=== PATIENT | female | born 1975 | race Caucasian/White ===

== ENCOUNTER 2016-09-03 16:11 | Emergency (ER) | payer BC, OTHER ==
[2016-09-03] MEDS ORDERED: IBUPROFEN 600 MG TABLET (FP) PO ONE ×2 (16:54→17:16)
[2016-09-03] MEDS ORDERED: METHOCARBAMOL 500 MG TABLET PO ONE (16:55)
[2016-09-03 16:57] VITALS: BP 112/74; PULSE 88; TEMP 98; BMI 22.8
[2016-09-03] MEDS ORDERED: METHOCARBAMOL 500 MG TABLET ONE (17:10)
[2016-09-03 17:14] LABS: URINE APPEARANCE CLEAR; URINE BILIRUBIN NEGATIVE (NEGATIVE); URINE BLOOD NEGATIVE (NEGATIVE); URINE COLOR YELLOW; URINE GLUCOSE (UA) NEGATIVE (NEGATIVE); URINE KETONE TRACE (NEGATIVE); URINE LEUK ESTERASE NEGATIVE (NEGATIVE); URINE NITRITE NEGATIVE (NEGATIVE); URINE PROTEIN NEGATIVE (NEGATIVE); URINE UROBILINOGEN NEGATIVE E.U./dl (0.2-1.0)
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
== END 2016-09-03 17:52 | disposition home or self-care (01) ==
LOC: JERFT 16:11
DX: S30.0XXA Contusion of lower back and pelvis, initial encounter (principal); Y04.2XXA Assault by strike against or bumped into by another person, initial encounter; Y93.89 Activity, other specified; Y92.219 Unspecified school as the place of occurrence of the external cause; Y99.0 Civilian activity done for income or pay; J45.909 Unspecified asthma, uncomplicated; D64.9 Anemia, unspecified
CPT/HCPCS: 81003; 99281-25

== ENCOUNTER 2016-10-01 15:16 | Emergency (ER) | payer BC, OTHER ==
[2016-10-01 15:33] VITALS: BP 99/65; PULSE 113; TEMP 97.8; BMI 29.2
--- NOTE | 2016-10-01 15:36 | PDOC ---
Rapid Medical Evaluation Time Seen by Provider: 10/01/16 15:22 Medical Evaluation: Allergies Allergy/AdvReac Type Severity Reaction Status Date / Time No Known Allergies Allergy Verified 09/03/16 16:53 10/01/16 15:29 I have performed a brief in-person evaluation of this patient. The patient presents with a chief complaint of severe back pain and spasm Has a history of Asthma, anemia PT states she was shoveling yesterday and "threw out her back" Pain is 10/10, comes in waves and is a cramp Pt feels like something is resting on a nerve She could not sleep last night and has a hard time finding a position of comfort She took motrin and applied a heating pad with no relief Pertinent physical exam findings: Pt limping slowly into the ER traige Left paraspinal tenderness to palpation I have ordered the following: Would order Toradol and Robaxin Pt s/p hysterectomy (no need for HCG) The patient will proceed to the ED for further evaluation. 10/01/16 15:34
[2016-10-01] MEDS ORDERED: KETOROLAC TROMETHAMINE 60 MG/2 ML VIAL IM ONE (16:19)
[2016-10-01] MEDS ORDERED: METHOCARBAMOL 500 MG TABLET PO ONE (16:19)
[2016-10-01] MEDS ORDERED: KETOROLAC TROMETHAMINE 30 MG/1 ML VIAL ONE (16:25)
[2016-10-01] MEDS ORDERED: METHOCARBAMOL 500 MG TABLET ONE (16:29)
--- NOTE | 2016-10-01 16:34 | PDOC ---
[id number] 4d BACK PAIN, SOB Time Seen by Provider: 10/01/16 15:22 History Source: Patient Exam Limitations: No Limitations - History of Present Illness Initial Comments: 10/01/16 16:28 41 yr female with c/o pain to lower back after shoveling yesterday. Pt states she felt the pain as she was throwing the heavy snow from the shovel. Pain is to lower back left side radiates to buttock and left leg causing numbness and tingling. Pt denies incontinence of urine or bowel. no saddle anesthesia, neg abd pain. Pt has history of kidney stones. Occurred: reports: yesterday Severity: reports: moderate Pain Location: reports: back Loss of Consciousness: no loss of consciousness Past History - Past Medical History Allergies/Adverse Reactions: Allergies Allergy/AdvReac Type Severity Reaction Status Date / Time No Known Allergies Allergy Verified 10/01/16 15:30 Home Medications: Ambulatory Orders Cyclobenzaprine HCl [Flexeril 10 mg] 5 mg PO TID PRN #21 tablet 10/01/16 Naproxen [Naprosyn -] 500 mg PO BID PRN #28 tablet 10/01/16 Oxycodone HCl/Acetaminophen [Percocet 5-325 mg Tablet] 1 - 2 tab PO Q6H PRN #10 tab MDD 6 10/01/16 Anemia: Yes Asthma: Yes GI Disorders: Yes Disorders: Yes (EXTRA KIDNEY) Suicide Attempt (Hx): No - Surgical History Abdominal Surgery: Yes (HERNIA X2) - Reproductive History Tubal Ligation: Yes - Immunization History Td Vaccination: Yes Immunization Up to Date: Yes - Psycho/Social/Smoking Cessation Hx Anxiety: No Suicidal Ideation: No Smoking Status: No Smoking History: Never smoked Have you smoked in the past 12 months: No Number of Cigarettes Smoked Daily: 0 Information on smoking cessation initiated: No Hx Alcohol Use: No Drug/Substance Use Hx: No Substance Use Type: None Trauma Specific PMHX - Complaint Specific PMHX Arthritis: No Back Injury: No Neck Injury: No Hx Sacro Iliac Joint Dysfunction: No Review of Systems - Review of Systems Able to Perform ROS?: Yes Is the patient limited Romanian proficient: No Constitutional: No: Symptoms Reported HEENTM: No: Symptoms Reported Respiratory: No: Symptoms reported Cardiac (ROS): No: Symptoms Reported ABD/GI: No: Symptoms Reported : No: Symptoms Reported Musculoskeletal: Yes: Back Pain Integumentary: No: Symptoms Reported Neurological: No: Symptoms reported *Physical Exam - Vital Signs Last Vital Signs Temp Pulse Resp BP Pulse Ox 97.8 F 113 H 18 99/65 100 10/01/16 15:31 10/01/16 15:31 10/01/16 15:31 10/01/16 15:31 10/01/16 15:31 - Physical Exam General Appearance: Yes: Nourished, Appropriately Dressed, Moderate Distress ( crying ) HEENT: positive: EOMI, SINDY, Normal ENT Inspection, TMs Normal, Pharynx Normal Neck: positive: Supple. negative: Tender, Lymphadenopathy (R), Lymphadenopathy (L) Respiratory/Chest: positive: Lungs Clear, Normal Breath Sounds. negative: Chest Tender Cardiovascular: positive: Regular Rhythm, Regular Rate Gastrointestinal/Abdominal: positive: Normal Bowel Sounds, Soft. negative: Tender Musculoskeletal: positive: Normal Inspection, Muscle Spasm, Other (left lower back paraspinal TTP ). negative: CVA Tenderness, CVA Tenderness (R) Extremity: positive: Normal Capillary Refill Integumentary: positive: Normal Color, Dry, Warm Neurologic: positive: Fully Oriented, Alert, Normal Mood/Affect, Normal Response , Motor Strength 5/5. negative: Sensory Deficit Medical Decision Making - Medical Decision Making 10/01/16 16:31 cc: low back pain after shoveling snow yesterday left leg with sciatica will give toradol and robaxin pt s/p hysterectomy denies will check UA r/o blood 10/01/16 16:34 neg urine will give toradol and robaxin, percocet for severe pain 10/01/16 17:23 *DC/Admit/Observation/Transfer Diagnosis at time of Disposition: Back pain Qualifiers: Back pain location: low back pain Chronicity: acute Back pain laterality: left Sciatica presence: with sciatica Sciatica laterality: sciatica of left side Qualified Code(s): M54.42 - Lumbago with sciatica, left side - Discharge Dispostion Disposition: HOME Condition at time of disposition: Good - Prescriptions Prescriptions: Cyclobenzaprine HCl [Flexeril 10 mg] 5 mg PO TID PRN #21 tablet PRN Reason: Muscle Spasms Naproxen [Naprosyn -] 500 mg PO BID PRN #28 tablet PRN Reason: Back Pain Oxycodone HCl/Acetaminophen [Percocet 5-325 mg Tablet] 1 - 2 tab PO Q6H PRN #10 tab MDD 6 PRN Reason: Severe Pain - Referrals Referrals: Rl Briceno MD [Staff Physician] - - Patient Instructions Additional Instructions: take the medication as prescribed DO NOT TAKE PERCOCET AND DRIVE, DRINK ALCOHOL OR OPERATE MACHINERY DO NOT TAKE FLEXERIL AND DRIVE, DRINK ALCOHOL OR OPERATE MACHINERY DO NOT TAKE PERCOCET AND FLEXERIL TOGETHER WAIT AT LEAST 2 HRS YOU CAN TAKE NAPROSYN WITH EITHER MEDICATION apply ice to lower back every 2-3hrs for 20 minutes for the next 2 days then apply warm heating pad follow with the orthopedist for follow up do not stay in one position for long periods of time move around no heavy lifting or bending return if any worsening symptoms - Post Discharge Activity Work/School Note: Back to Work
[2016-10-01 17:08] LABS: URINE APPEARANCE CLOUDY; URINE BILIRUBIN NEGATIVE (NEGATIVE); URINE BLOOD NEGATIVE (NEGATIVE); URINE COLOR YELLOW; URINE GLUCOSE (UA) NEGATIVE (NEGATIVE); URINE KETONE NEGATIVE (NEGATIVE); URINE LEUK ESTERASE NEGATIVE (NEGATIVE); URINE NITRITE NEGATIVE (NEGATIVE); URINE PROTEIN NEGATIVE (NEGATIVE); URINE UROBILINOGEN NEGATIVE E.U./dl (0.2-1.0)
[2016-10-01] MEDS ORDERED: OXYCODONE/APAP 5/325MG COMBO TABLET PO ONE (17:22)
[2016-10-01] MEDS ORDERED: OXYCODONE/APAP 5/325MG COMBO TABLET ONE (17:27)
== END 2016-10-01 17:55 | disposition home or self-care (01) ==
LOC: JERFT 15:16
PROC: 3E0233Z Introduction of Anti-inflammatory into Muscle, Percutaneous Approach (ICD-10-PCS; principal; 2016-10-01)
DX: M54.42 Lumbago with sciatica, left side (principal); X58.XXXA Exposure to other specified factors, initial encounter; Y93.H1 Activity, digging, shoveling and raking; Y92.410 Unspecified street and highway as the place of occurrence of the external cause
CPT/HCPCS: 81003; 99281-25

== ENCOUNTER 2017-09-07 11:19 | Emergency (ER) | payer BC ==
[2017-09-07 11:36] VITALS: BP 106/81; PULSE 89; TEMP 98.3; BMI 26.0
[2017-09-07] MEDS ORDERED: IBUPROFEN 400 MG TABLET (FP) PO ONE (12:17)
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
== END 2017-09-07 13:38 | disposition home or self-care (01) ==
LOC: JERFT 11:19
DX: S92.515A Nondisplaced fracture of proximal phalanx of left lesser toe(s), initial encounter for closed fracture (principal); W22.09XA Striking against other stationary object, initial encounter; Y93.89 Activity, other specified; Y92.89 Other specified places as the place of occurrence of the external cause; Y99.8 Other external cause status
CPT/HCPCS: 73660-TC-FY; 99281-25

== ENCOUNTER 2018-05-20 12:21 | Emergency (ER) | payer OTHER, BC ==
[2018-05-20 12:27] VITALS: BP 121/91; PULSE 91; TEMP 98; BMI 25.4
[2018-05-20] MEDS ORDERED: KETOROLAC TROMETHAMINE 60 MG/2 ML VIAL IM ONE (13:40)
[2018-05-20] MEDS ORDERED: KETOROLAC TROMETHAMINE 60 MG/2 ML VIAL ONE (13:47)
--- NOTE | 2018-05-20 13:56 | PDOC ---
History of Present Illness - General Chief Complaint: Injury Stated Complaint: INJURY Time Seen by Provider: 05/20/18 13:25 History Source: Patient Exam Limitations: No Limitations - History of Present Illness Initial Comments: 05/20/18 13:49 42 yr female with c/o fall yesterday at work injured back. pt woke up today feeling worse no pain meds taken today. Pt was playing musical chairs and a chair was pulled out from under her and she fell on her back no head trauma no LOC. pt denies abd pain no urine complaints, no leg pain. Occurred: reports: yesterday Severity: reports: moderate Pain Location: reports: back Modifying Factors: improves with: None Past History - Past Medical History Allergies/Adverse Reactions: Allergies Allergy/AdvReac Type Severity Reaction Status Date / Time No Known Allergies Allergy Verified 05/20/18 12:27 Home Medications: Ambulatory Orders Oxycodone HCl/Acetaminophen [Percocet 5-325 mg Tablet -] 1 - 2 tab PO Q4H PRN # 20 tablet MDD 4 09/07/17 Cyclobenzaprine HCl [Flexeril -] 10 mg PO TID PRN #21 tablet 05/20/18 Naproxen [Naprosyn] 500 mg PO BID PRN #20 tablet 05/20/18 Anemia: Yes Asthma: Yes COPD: No GI Disorders: Yes Disorders: Yes (EXTRA KIDNEY) - Surgical History Abdominal Surgery: Yes (HERNIA X2) - Reproductive History Tubal Ligation: Yes - Immunization History Td Vaccination: Yes Immunization Up to Date: Yes - Suicide/Smoking/Psychosocial Hx Smoking Status: No Smoking History: Never smoked Have you smoked in the past 12 months: No Number of Cigarettes Smoked Daily: 0 Hx Alcohol Use: No Drug/Substance Use Hx: No Substance Use Type: None Trauma Specific PMHX - Complaint Specific PMHX Arthritis: No Back Injury: No Neck Injury: No Hx Sacro Iliac Joint Dysfunction: No *Physical Exam - Vital Signs Last Vital Signs Temp Pulse Resp BP Pulse Ox 98 F 91 H 18 121/91 100 05/20/18 12:22 05/20/18 12:22 05/20/18 12:22 05/20/18 12:22 05/20/18 12:22 - Physical Exam General Appearance: Yes: Nourished, Appropriately Dressed HEENT: positive: EOMI, SINDY Neck: positive: Supple. negative: Tender Respiratory/Chest: positive: Lungs Clear, Normal Breath Sounds. negative: Chest Tender Cardiovascular: positive: Regular Rhythm, Regular Rate Gastrointestinal/Abdominal: positive: Normal Bowel Sounds, Soft Musculoskeletal: positive: Normal Inspection, Vertebral Tenderness (lumbar spine and thoracic spine, cervical spine paraspinal muscles ttp no vetebral tenderness). 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 NML intact, Fully Oriented, Alert, Normal Mood/ Affect ED Treatment Course - RADIOLOGY Radiology Studies Ordered: Category Date Time Status SPINE-CERVICAL [RAD] Stat Radiology 05/20/18 13:40 Ordered SPINE-LUMBAR SACRAL [RAD] Stat Radiology 05/20/18 13:40 Ordered SPINE-THORACIC [RAD] Stat Radiology 05/20/18 13:40 Ordered Medical Decision Making - Medical Decision Making 05/20/18 13:51 cc: back pain after fall pt states pain is reproducable with movement and to touch no bony tenderness cervical spine is midline no vetebral tenderness pain reproduced with rotation of the neck will give toradol and xray 05/20/18 13:59 05/20/18 15:04 pt feels better after the toradol, preliminary xrays are negative for fracture. pt to be dc home strict follow up with PMD and with ortho pt agrees all questions asked and answered *DC/Admit/Observation/Transfer Diagnosis at time of Disposition: Back pain Qualifiers: Back pain location: thoracic back pain Chronicity: acute Back pain laterality: bilateral Qualified Code(s): M54.6 - Pain in thoracic spine - Discharge Dispostion Disposition: HOME Condition at time of disposition: Good - Prescriptions Prescriptions: Cyclobenzaprine HCl [Flexeril -] 10 mg PO TID PRN #21 tablet PRN Reason: Muscle Spasms Naproxen [Naprosyn] 500 mg PO BID PRN #20 tablet PRN Reason: Back Pain - Referrals Referrals: Mateusz Woods DO [Staff Physician] - - Patient Instructions Additional Instructions: heating pad, hot showers can help relieve tension and muscle spasm take the medications as directed , you may feel sore for a few days however any worsening pain or other concerns return to ER follow with the orthopedist Dr.Woods for follow up next week as needed avoid heavy lifting or bending return to ER for any worsening symptoms - Post Discharge Activity Forms/Work/School Notes: Back to Work
== END 2018-05-20 15:11 | disposition home or self-care (01) ==
LOC: JERFT 12:21
PROC: 3E0233Z Introduction of Anti-inflammatory into Muscle, Percutaneous Approach (ICD-10-PCS; principal; 2018-05-20)
DX: M54.6 Pain in thoracic spine (principal); W18.39XA Other fall on same level, initial encounter; Y93.89 Activity, other specified; Y92.212 Middle school as the place of occurrence of the external cause; Y99.0 Civilian activity done for income or pay
CPT/HCPCS: 72050-TC-FY; 72070-TC-FY; 72100-TC-FY; 99281-25

== ENCOUNTER 2018-05-22 00:25 | Emergency (ER) | payer BC, OTHER ==
--- NOTE | 2018-05-22 00:50 | PDOC ---
History of Present Illness - General History Source: Patient Exam Limitations: No Limitations - History of Present Illness Initial Comments: 05/22/18 02:11 The patient is a 42-year-old female with past medical history significant for asthma and anemia presents to the emergency department with back pain. 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 The patient was seen at the ED on 05/20/2018 for the injury, was discharged home with Flexeril and Naprosyn. The patient presents today with R. upper back pain, with difficulty moving. The patient states she is unable to lay down flat secondary to the pain, reports using heat pack for the pain, without relief. Denies numbness, tingling, or loss of sensation. Denies fever, chills, chest pain or shortness of breath. Allergies: NKA Social history: No past or present use of tobacco, alcohol or recreational drugs PCP: None reported <Mariluz San - Last Filed: 05/22/18 02:11> <Cecille Montaño - Last Filed: 05/22/18 03:37> - General Stated Complaint: BACK PAIN/INJURY Time Seen by Provider: 05/22/18 00:50 Past History <Mariluz San - Last Filed: 05/22/18 02:11> - Past Medical History Anemia: Yes Asthma: Yes COPD: No GI Disorders: Yes Disorders: Yes (EXTRA KIDNEY) - Surgical History Abdominal Surgery: Yes (HERNIA X2) - Reproductive History Tubal Ligation: Yes - Immunization History Td Vaccination: Yes Immunization Up to Date: Yes - Suicide/Smoking/Psychosocial Hx Smoking Status: No Smoking History: Never smoked Have you smoked in the past 12 months: No Number of Cigarettes Smoked Daily: 0 Hx Alcohol Use: No Drug/Substance Use Hx: No Substance Use Type: None <Cecille Montaño - Last Filed: 05/22/18 03:37> - Past Medical History Allergies/Adverse Reactions: Allergies Allergy/AdvReac Type Severity Reaction Status Date / Time No Known Allergies Allergy Verified 05/22/18 00:51 Home Medications: Ambulatory Orders Oxycodone HCl/Acetaminophen [Percocet 5-325 mg Tablet -] 1 - 2 tab PO Q4H PRN # 20 tablet MDD 4 09/07/17 Cyclobenzaprine HCl [Flexeril -] 10 mg PO TID PRN #21 tablet 05/20/18 Naproxen [Naprosyn] 500 mg PO BID PRN #20 tablet 05/20/18 Lidocaine 5% Patch [Lidoderm Patch -] 1 patch TP DAILY #7 patch 05/22/18 Review of Systems - Review of Systems Able to Perform ROS?: Yes Comments:: 05/22/18 02:11 GENERAL/CONSTITUTIONAL: No fever or chills. No weakness. HEAD, EYES, EARS, NOSE AND THROAT: No change in vision. No ear pain or discharge. No sore throat. CARDIOVASCULAR: No chest pain or shortness of breath. RESPIRATORY: No cough, wheezing, or hemoptysis. GASTROINTESTINAL: No nausea, vomiting, diarrhea or constipation. GENITOURINARY: No dysuria, frequency, or change in urination. MUSCULOSKELETAL: (+) R. upper back pain. No joint or muscle swelling or pain. No neck pain. SKIN: No rash NEUROLOGIC: No headache, vertigo, loss of consciousness, or change in strength/ sensation. ENDOCRINE: No increased thirst. No abnormal weight change. HEMATOLOGIC/LYMPHATIC: No anemia, easy bleeding, or history of blood clots. ALLERGIC/IMMUNOLOGIC: No hives or skin allergy. <Mariluz San - Last Filed: 05/22/18 02:11> *Physical Exam - Vital Signs Last Vital Signs Temp Pulse Resp BP Pulse Ox 97.6 F 98 H 18 129/93 99 05/22/18 00:30 05/22/18 00:30 05/22/18 00:30 05/22/18 00:30 05/22/18 00:30 - Physical Exam Comments: 07/22/17 01:38 GENERAL: Afebril Awake, alert, and fully oriented, in no acute distress HEAD: No signs of trauma EYES: PERRLA, EOMI, sclera anicteric, conjunctiva clear ENT: Auricles normal inspection, hearing grossly normal, nares patent, oropharynx clear without exudates. Moist mucosa NECK: Normal ROM, supple, no lymphadenopathy, JVD, or masses LUNGS: Breath sounds equal, clear to auscultation bilaterally. No wheezes, and no crackles HEART: Regular rate and rhythm, normal S1 and S2, no murmurs, rubs or gallops ABDOMEN: Soft, nontender, normoactive bowel sounds. No guarding, no rebound. No masses EXTREMITIES: Normal range of motion, no edema. No clubbing or cyanosis. No cords, erythema, or tenderness MUSCULOSKELETAL: (+) Extremely stiff, seated in one position, arm adducted and flexed R. arm, R. back pain tearful when pressed on her R. paraspinal area between T3-T6. R. paraspinal thoracic posterior tenderness and R. trapezius tenderness. NEUROLOGICAL: Cranial nerves II through XII grossly intact. Normal speech. SKIN: Warm, Dry, normal turgor, no rashes or lesions noted. <Mariluz San - Last Filed: 05/22/18 02:11> ED Treatment Course - Medications Given in the ED: ED Medications Discontinued Medications Generic Name Dose Route Start Last Admin Trade Name Kingsleyq PRN Reason Stop Dose Admin Ketorolac Tromethamine 60 mg 05/22/18 01:18 05/22/18 01:28 Toradol Injection - IM 05/22/18 01:19 60 mg ONCE ONE Administration Lidocaine 1 patch 05/22/18 01:15 05/22/18 01:26 Lidoderm Patch - TP 05/22/18 01:16 1 patch ONCE ONE Administration Morphine Sulfate 2 mg 05/22/18 01:15 05/22/18 01:26 Morphine Injection - IM 05/22/18 01:16 2 mg ONCE ONE Administration <Mariluz San - Last Filed: 05/22/18 02:11> - LABORATORY CBC & Chemistry Diagram: 05/22/18 02:55 05/22/18 02:55 <Cecille Montaño - Last Filed: 05/22/18 03:37> Medical Decision Making - Medical Decision Making 05/22/18 03:35 Patient Name: VANDA CONSTANTINO THIS IS A PRELIMINARY REPORT FROM [facility] DATE OF SERVICE: 2018-05-22 02:15:52 IMAGES: 425 EXAM: CT CHEST WITHOUT CONTRAST Paraspinal soft tissues unremarkable. Minimal spondylosis thoracic spine. No pneumonia or pleural effusions. One or more of the following dose reduction techniques were used: automated exposure control, adjustment of the mA and/or kV according to patient size, use of iterative reconstructive technique. THIS DOCUMENT HAS BEEN ELECTRONICALLY SIGNED <Cecille Montaño - Last Filed: 05/22/18 03:37> *DC/Admit/Observation/Transfer <Mariluz San - Last Filed: 05/22/18 02:11> - Discharge Dispostion Decision to Admit order: No <Cecille Montaño - Last Filed: 05/22/18 03:37> Diagnosis at time of Disposition: Muscle spasm of back - Discharge Dispostion Disposition: HOME Condition at time of disposition: Improved - Patient Instructions Printed Discharge Instructions: DI for Back Spasm - Post Discharge Activity Forms/Work/School Notes: Back to Work
[2018-05-22 00:53] VITALS: BP 129/93; PULSE 98; TEMP 97.6; BMI 30.9
[2018-05-22] MEDS ORDERED: LIDOCAINE 5% TOPICAL PATCH TP ONE (01:15)
[2018-05-22] MEDS ORDERED: morphine CARPU-JECT 2 MG/1 ML DISP.SYRIN IM ONE (01:15)
[2018-05-22] MEDS ORDERED: KETOROLAC TROMETHAMINE 60 MG/2 ML VIAL IM ONE (01:18)
[2018-05-22] MEDS ORDERED: morphine SULFATE 4 MG/ML VIAL ONE (01:18)
[2018-05-22] MEDS ORDERED: LIDOCAINE 5% TOPICAL PATCH ONE (01:19)
[2018-05-22] MEDS ORDERED: KETOROLAC TROMETHAMINE 60 MG/2 ML VIAL ONE (01:26)
[2018-05-22 03:19] LABS: BASO % 0.9 % (0-2.0); EOS % 7.5 % (0-4.5); HEMATOCRIT 38.5 % (32.4-45.2); HEMOGLOBIN 13.1 GM/dL (10.7-15.3); LYMPH % 28.8 % (8-40); MEAN PLT VOLUME 9.5 fl (7.5-11.1); MONO % 7.9 % (3.8-10.2); NEUT % 54.9 % (42.8-82.8); PLATELET COUNT 211 K/MM3 (134-434); RBC 4.09 M/mm3 (3.60-5.2); RDW 13.4 % (11.6-15.6)
[2018-05-22 03:40] LABS: ALBUMIN 4.1 g/dl (3.4-5.0); ALK PHOS 71 U/L (45-117); ANION GAP 8 MMOL/L (8-16); BILIRUBIN,TOTAL 0.4 mg/dL (0.2-1); BLOOD UREA NITROGEN 17 mg/dL (7-18); CHLORIDE 105 mmol/L (98-107); CO2 26 mmol/L (21-32); CREATININE 0.5 mg/dL (0.55-1.3); GLUCOSE,RANDOM 87 mg/dL (74-106); POTASSIUM 4.2 mmol/L (3.5-5.1); SGOT/AST 11 U/L (15-37); SGPT/ALT 25 U/L (13-61); SODIUM 139 mmol/L (136-145); TOT PROT 7.8 g/dl (6.4-8.2)
[2018-05-22] MEDS ORDERED: LIDOCAINE PATCH REMOVAL MC SCH (22:00)
== END 2018-05-22 03:44 | disposition home or self-care (01) ==
LOC: JER 00:25
PROC: 3E0333Z Introduction of Anti-inflammatory into Peripheral Vein, Percutaneous Approach (ICD-10-PCS; principal; 2018-05-22)
DX: S29.8XXD Other specified injuries of thorax, subsequent encounter (principal); M62.830 Muscle spasm of back; W18.39XD Other fall on same level, subsequent encounter
CPT/HCPCS: 36415; 71250-TC; 80053; 84703; 85025; 99283-25

== ENCOUNTER 2018-10-27 09:11 | Emergency (ER) | payer BC ==
[2018-10-27 09:34] VITALS: BP 128/86; PULSE 79; TEMP 98.1; BMI 23.8
[2018-10-27] MEDS ORDERED: LIDOCAINE HCL 2% (50ML VIAL) INF ONE (10:58)
[2018-10-27] MEDS ORDERED: LIDOCAINE HCL 2% (20ML MULTI-DOSE VIAL) NR ONE (10:59)
--- NOTE | 2018-10-27 11:49 | PDOC ---
History of Present Illness - General Chief Complaint: Laceration Stated Complaint: RT THUMB CUT Time Seen by Provider: 10/27/18 10:22 History Source: Patient Exam Limitations: Clinical Condition - History of Present Illness Initial Comments: 10/27/18 11:44 Patient with no significant past medical history presenting for evaluation of laceration to tip of right index finger with a cooking knife last night. Patient report persistent bleeding to area which has been controlled with pressure dressing. Patient does not recall last tetanus vaccine. Denies numbness or tingling sensation to the finger. Denies any other symptoms Timing/Duration: reports: yesterday Past History - Past Medical History Allergies/Adverse Reactions: Allergies Allergy/AdvReac Type Severity Reaction Status Date / Time No Known Allergies Allergy Verified 10/27/18 10:39 Home Medications: Ambulatory Orders Cephalexin Monohydrate [Keflex -] 500 mg PO BID 7 Days #14 capsule 10/27/18 Ibuprofen 800 mg PO Q8H PRN #20 tablet 10/27/18 Anemia: Yes Asthma: Yes COPD: No GI Disorders: Yes Disorders: Yes (EXTRA KIDNEY) - Surgical History Abdominal Surgery: Yes (HERNIA X2) - Reproductive History Tubal Ligation: Yes - Immunization History Td Vaccination: Yes Immunization Up to Date: Yes - Suicide/Smoking/Psychosocial Hx Smoking Status: No Smoking History: Never smoked Have you smoked in the past 12 months: No Number of Cigarettes Smoked Daily: 0 Information on smoking cessation initiated: No Hx Alcohol Use: No Drug/Substance Use Hx: No Substance Use Type: None Review of Systems - Review of Systems Able to Perform ROS?: Yes Is the patient limited Niuean proficient: No Constitutional: No: Weakness HEENTM: No: Symptoms Reported Respiratory: No: Symptoms reported Cardiac (ROS): No: Symptoms Reported ABD/GI: No: Symptoms Reported Musculoskeletal: Yes: See HPI, Muscle Pain (tip of left index finger). No: Joint Swelling, Muscle Weakness Integumentary: Yes: See HPI, Other (laceration with skin avulsion of tip of left index finger) Neurological: No: Numbness, Paresthesia, Tingling All Other Systems: Reviewed and Negative *Physical Exam - Vital Signs Last Vital Signs Temp Pulse Resp BP Pulse Ox 98.1 F 79 18 128/86 98 10/27/18 09:32 10/27/18 09:32 10/27/18 09:32 10/27/18 09:32 10/27/18 09:32 - Physical Exam Comments: 10/27/18 11:46 GENERAL: Well developed, well nourished. Awake and alert in acute distress. CARDIOVASCULAR: Regular rate and rhythm. No murmurs, rubs, or gallops. PULMONARY: No evidence of respiratory distress. Lungs clear to auscultation bilaterally. No wheezing, rales or rhonchi. MUSCULOSKELETAL : Moderate tenderness over distal phalange of right thumb over 2 cm complete skin evulsion laceration to tip of right thumb with moderate bleeding. Free range of motion of thumb. 5 out of 5 muscle strength to thumb. SKIN: Warm and dry. Normal capillary refill. 2 cm complete skin avulsion laceration to tip of right thumb with moderate bleeding. NEUROLOGICAL: Alert, awake, appropriate. No motor deficits in the lower extremities. Gait is normal without ataxia. PSYCHIATRIC: Cooperative. Good eye contact. Appropriate mood and affect. General Appearance: Yes: Nourished, Appropriately Dressed, Mild Distress ED Treatment Course - Medications Given in the ED: ED Medications Discontinued Medications Generic Name Dose Route Start Last Admin Trade Name Freq PRN Reason Stop Dose Admin Lidocaine HCl 0 mg 10/27/18 10:58 10/27/18 11:01 Xylocaine 2% INF 10/27/18 10:59 3 mg ONCE ONE Administration Medical Decision Making - Medical Decision Making 10/27/18 11:47 Patient with no significant past medical history presented with laceration to tip of right thumb with a cooking knife last night. Patient reported persistent bleeding to site. Patient not on anticoagulant therapy. Patient not up-to-date on tetanus vaccine. Exam significant for 2 cm complete avulsion laceration to skin of the tip of right thumb with moderate bleeding. Digital block of right thumb done with 3 mL 2% lidocaine wound cleaned with Betadine and bleeding control with Surgifoam. Wound covered with adhesive bandage and protective circular gauze thumb. Patient educated on home wound care. Patient given follow-up with hand plastic. Tetanus vaccine given prior to discharge *DC/Admit/Observation/Transfer Diagnosis at time of Disposition: Laceration of right thumb without complication Qualifiers: Encounter type: initial encounter Qualified Code(s): S61.011A - Laceration without foreign body of right thumb without damage to nail, initial encounter - Discharge Dispostion Disposition: HOME Condition at time of disposition: Stable Decision to Admit order: No - Prescriptions Prescriptions: Cephalexin Monohydrate [Keflex -] 500 mg PO BID 7 Days #14 capsule Ibuprofen 800 mg PO Q8H PRN #20 tablet PRN Reason: pain - Referrals Referrals: Siddhartha Quesada MD [Staff Physician] - - Patient Instructions Printed Discharge Instructions: DI for Laceration Repair Additional Instructions: Take medications as prescribed. Keep wound clean and dry. Take prescribed motrin as needed for pain. Follow-up with hand specialist Dr. Quesada - Post Discharge Activity
[2018-10-27] MEDS ORDERED: DIPHTH,PERTUSS(ACELL),TET 0.5 ML DISP.SYRIN IM ONE ×2 (11:57→12:04)
== END 2018-10-27 12:10 | disposition home or self-care (01) ==
LOC: JERFT 09:11
PROC: 3E0234Z Introduction of Serum, Toxoid and Vaccine into Muscle, Percutaneous Approach (ICD-10-PCS; principal; 2018-10-27)
PROC: 0HQFXZZ Repair Right Hand Skin, External Approach (ICD-10-PCS; 2018-10-27)
DX: S61.011A Laceration without foreign body of right thumb without damage to nail, initial encounter (principal); W26.0XXA Contact with knife, initial encounter; Y93.89 Activity, other specified; Y92.89 Other specified places as the place of occurrence of the external cause; J45.909 Unspecified asthma, uncomplicated
CPT/HCPCS: 90715; 99281-25

== ENCOUNTER 2019-09-01 18:43 | Emergency (ER) | payer BC ==
[2019-09-01 18:58] VITALS: BMI 23.8
[2019-09-01] MEDS ORDERED: ONDANSETRON 4 MG/2 ML VIAL IVPUSH ONE (20:55)
[2019-09-01] MEDS ORDERED: morphine CARPU-JECT 2 MG/1 ML DISP.SYRIN IVPUSH ONE ×2 (20:56→23:42)
[2019-09-01] MEDS ORDERED: SODIUM CHLORIDE 0.9% 500 ML INFUS.BAG IV ONE (20:59)
[2019-09-01] MEDS ORDERED: ONDANSETRON 4 MG/2 ML VIAL ONE (21:35)
[2019-09-01] MEDS ORDERED: MORPHINE SULFATE 2 MG/ML VIAL ONE ×2 (21:35→23:46)
--- NOTE | 2019-09-01 22:02 | PDOC ---
History of Present Illness - General Chief Complaint: Pain, Acute Stated Complaint: RT LOWER BACK PAIN Time Seen by Provider: 09/01/19 20:50 History Source: Patient Exam Limitations: No Limitations - History of Present Illness Initial Comments: 09/01/19 21:57 43-year-old female with history of asthma, anemia, floating kidney, renal stones requiring stents approximately 10 years ago presents complaining of right flank pain radiating to right groin since yesterday morning with nausea and 2 episodes of diarrhea. Pain is constant similar to prior renal stones. Denies vomiting, urinary complaints, chest pain, shortness of breath, trauma. ROS: GENERAL/CONSTITUTIONAL: No fever, chills, weakness, dizziness HEAD, EYES, EARS, NOSE AND THROAT: No changes in vision, No ear pain or discharge, No sore throat CARDIOVASCULAR: No chest pain RESPIRATORY: No shortness of breath or cough GASTROINTESTINAL: Positive abdominal pain, nausea, diarrhea, denies vomiting GENITOURINARY: No dysuria MUSCULOSKELETAL: Right low back pain SKIN: No rash NEUROLOGIC: No headache, vertigo, loss of consciousness, or loss of sensation PE: GENERAL: Writhing in pain HEAD: NCAT EYES: Pupils equal, round and reactive to light, sclera anicteric, conjunctiva clear ENT: pharynx: no erythema, no exudate, uvula midline NECK: supple CHEST: nontender RESP: clear, no w/r/r CARDIO: rrr, no m/g/r ABD: +BS, soft, nontender, non distended BACK: Positive CVAT, no midline spinal ttp EXTREMITIES: Normal range of motion, no edema NEUROLOGICAL: Normal speech, ambulating with slight limp due to pain SKIN: Warm, Dry 09/01/19 22:01 Is this a multiple visit Asthma Patient?: No Past History - Past Medical History Allergies/Adverse Reactions: Allergies Allergy/AdvReac Type Severity Reaction Status Date / Time No Known Allergies Allergy Verified 09/01/19 18:58 Home Medications: Ambulatory Orders Ibuprofen 800 mg PO Q8H PRN #20 tablet 10/27/18 Cephalexin Monohydrate [Keflex -] 500 mg PO BID 10 Days #20 capsule 09/02/19 Anemia: Yes Asthma: Yes COPD: No GI Disorders: Yes Disorders: Yes (EXTRA KIDNEY) - Surgical History Abdominal Surgery: Yes (HERNIA X2) - Reproductive History Tubal Ligation: Yes - Immunization History Td Vaccination: Yes Immunization Up to Date: Yes - Psycho Social/Smoking Cessation Hx Smoking Status: No Smoking History: Never smoked Have you smoked in the past 12 months: No Number of Cigarettes Smoked Daily: 0 Hx Alcohol Use: No Drug/Substance Use Hx: No Substance Use Type: None *Physical Exam - Vital Signs Last Vital Signs Temp Pulse Resp BP Pulse Ox 98.2 F 89 19 101/69 09/01/19 18:55 09/01/19 18:55 09/01/19 18:55 09/01/19 18:55 ED Treatment Course - LABORATORY CBC & Chemistry Diagram: 09/01/19 22:10 09/01/19 22:10 - RADIOLOGY Radiology Studies Ordered: Category Date Time Status ABDOMEN & PELVIS CT W/O CONTR [CT] Stat CT Scan 09/01/19 20:56 Ordered Medical Decision Making - Medical Decision Making 09/01/19 22:00 43-year-old female with history of right-sided renal stones requiring stenting approximately 10 years ago presents with right lower back pain radiating to right groin since yesterday similar to prior renal stones. Labs, UA IV fluids Analgesia Antiemetic CTAP w/o con Reassess 09/02/19 02:08 No acute pathology on CTAP Reviewed labs and UA Patient feels better after analgesia, antiemetic and fluids Will send prescription for cephalexin Advised to remain hydrated Return precautions discussed Discharge - Discharge Information Problems reviewed: Yes Clinical Impression/Diagnosis: Flank pain Condition: Stable Disposition: HOME - Admission No - Additional Discharge Information Prescriptions: Cephalexin Monohydrate [Keflex -] 500 mg PO BID 10 Days #20 capsule - Follow up/Referral - Patient Discharge Instructions Additional Instructions: Take cephalexin 500 mg twice a day for 10 days Drink plenty of fluids If you develop worsening back pain, fever, nausea, vomiting return to the ED immediately - Post Discharge Activity Work/Back to School Note: Back to Work
[2019-09-01 22:22] LABS: BASO % 0.5 % (0-2.0); HEMATOCRIT 40.1 % (32.4-45.2); HEMOGLOBIN 13.4 GM/dL (10.7-15.3); LYMPH % 24.9 % (8-40); MCH 31.6 pg (25.7-33.7); MCHC 33.3 g/dl (32.0-36.0); MEAN CELL VOLUME 94.8 fl (80-96); MEAN PLT VOLUME 10.3 fl (7.5-11.1); MONO % 6.5 % (3.8-10.2); NEUT % 63.1 % (42.8-82.8); PLATELET COUNT 186 K/MM3 (134-434); RBC 4.23 M/mm3 (3.60-5.2); RDW 13.5 % (11.6-15.6)
[2019-09-01 22:26] LABS: EPI CELLS >36 /HPF (0-5/HPF); HYALINE CASTS 33 /lpf (0-8); PH,URINE 5.5 (5.0-8.0); URINE APPEARANCE TURBID; URINE BACTERIA 8818.9 /hpf (NEGATIVE); URINE BILIRUBIN NEGATIVE (NEGATIVE); URINE COLOR YELLOW; URINE GLUCOSE (UA) NEGATIVE (NEGATIVE); URINE KETONE TRACE (NEGATIVE); URINE LEUK ESTERASE 2+ (NEGATIVE); URINE NITRITE POSITIVE (NEGATIVE); URINE PROTEIN TRACE (NEGATIVE); URINE RBC 2 /hpf (0-4); URINE UROBILINOGEN 0.2 mg/dL (0.2-1.0); URINE WBC 206 /hpf (0-5)
[2019-09-01 22:35] LABS: INR 1.07 (0.83-1.09); PROTHROMBIN TIME (PATIENT) 12.6 SEC (9.7-13.0)
[2019-09-01 23:05] LABS: ALBUMIN 4.1 g/dl (3.4-5.0); BILIRUBIN,TOTAL 0.3 mg/dL (0.2-1); BLOOD UREA NITROGEN 15.4 mg/dL (7-18); CALCIUM 9.4 mg/dL (8.5-10.1); CREATININE 0.6 mg/dL (0.55-1.3); POTASSIUM 4.3 mmol/L (3.5-5.1); TOT PROT 7.8 g/dl (6.4-8.2)
[2019-09-01 23:25] VITALS: TEMP 98.1
[2019-09-02 02:44] VITALS: BP 102/57; PULSE 66
== END 2019-09-02 02:47 | disposition home or self-care (01) ==
LOC: JER 18:43
DX: J45.909 Unspecified asthma, uncomplicated (principal); Z87.09 Personal history of other diseases of the respiratory system; Z86.2 Personal history of diseases of the blood and blood-forming organs and certain disorders involving the immune mechanism; Z87.440 Personal history of urinary (tract) infections; Z96.0 Presence of urogenital implants
CPT/HCPCS: 36415; 74176-TC; 80053; 81003; 85025; 85610; 85730; 87086; 87186; 99285-25

== ENCOUNTER 2019-09-02 09:15 | Inpatient (IN) | payer BC ==
--- NOTE | 2019-09-02 09:34 | PDOC ---
History of Present Illness - General Chief Complaint: Pain Stated Complaint: MIGRAINE AND BACK PAIN Time Seen by Provider: 09/02/19 09:33 History Source: Patient Exam Limitations: No Limitations - History of Present Illness Initial Comments: 09/02/19 09:33 PCP: None HPI: 43yo F PMH floating kidney, migraines, seen at [facility] last night, diagnosed with a UTI/Pyelo discharged with Rx for Keflex, presenting with symptoms of her typical migraine headache. Patient reports she was unable to make it to the pharmacy since discharge, woke up with holocranial head pressure , photophobia, sweating, nausea, vomited once in the ED on arrival, consistent with her typical migraines. She reports she usually takes "whatever pain killers we have laying around the house" when she has a migraine. Did not take anything today before arrival in the ED. Lower back pain from yesterday ( required 4mg morphine in the department) is back. Pain is non-radiating, located in the right lower back. Underwent basic labs, UA, CTAP yesterday / this morning before discharge. All: NKDA Meds: Per chart PMH: Asthma, Migraines, floating kidney PSH: x2, hernia x2, Lipo Past History - Travel Traveled outside of the country in the last 30 days: No Close contact w/someone who was outside of country & ill: No - Past Medical History Allergies/Adverse Reactions: Allergies Allergy/AdvReac Type Severity Reaction Status Date / Time No Known Allergies Allergy Verified 09/01/19 18:58 Home Medications: Ambulatory Orders Cephalexin Monohydrate [Keflex -] 500 mg PO BID 10 Days #20 capsule 09/02/19 Anemia: Yes Asthma: Yes COPD: No GI Disorders: Yes Disorders: Yes (EXTRA KIDNEY) - Surgical History Abdominal Surgery: Yes (HERNIA X2) - Reproductive History Tubal Ligation: Yes - Immunization History Td Vaccination: Yes Immunization Up to Date: Yes - Psycho Social/Smoking Cessation Hx Smoking Status: No Smoking History: Never smoked Have you smoked in the past 12 months: No Number of Cigarettes Smoked Daily: 0 Hx Alcohol Use: No Drug/Substance Use Hx: No Substance Use Type: None Review of Systems - Review of Systems Able to Perform ROS?: Yes Is the patient limited Palauan proficient: Yes Constitutional: Yes: Chills, Diaphoresis. No: Fever, Weakness HEENTM: No: Nose Congestion, Throat Pain Respiratory: No: Cough, Shortness of Breath, Wheezing Cardiac (ROS): No: Chest Pain, Irregular Heart Rate, Lightheadedness, Palpitations, Chest Tightness ABD/GI: Yes: Nausea, Vomiting. No: Constipated, Diarrhea, Poor Appetite, Poor Fluid Intake : Yes: Flank Pain. No: Burning, Dysuria, Frequency, Hematuria, Incontinence Musculoskeletal: Yes: Back Pain (right flank). No: Muscle Pain, Muscle Weakness Integumentary: No: Bruising, Pruritus, Rash Neurological: No: Headache, Numbness, Tingling, Weakness Psychiatric: No: Stressors, Change in Appetite Endocrine: No: Increased Thirst, Increased Urine Hematologic/Lymphatic: No: Anemia, Blood Clots, Easy Bleeding All Other Systems: Reviewed and Negative *Physical Exam - Physical Exam 09/02/19 10:14 Vitals reviewed, AFVSS GEN: Appears stated age, NAD, uncomfortable, tearful. AAOx3. HEENT: NCAT, EOMI, PERRL. Sclera anicteric, non-injected. No facial asymmetry. Moist mucous membranes. Normal voice. Trachea midline. CV: RRR, S1/S2, no murmurs / rubs / gallops appreciated. LUNG: CTAB, normal work of breathing. No wheezes, rales, rhonchi. No cough. Speaking full sentences. GI: Soft, ND, +mild tenderness in epigastrium, +BS, no guarding, no rebound. No masses. Neg CVAT b/l. Tender in R flank. EXTREMITIES: 2+ distal pulses. No LE edema. No obvious deformities of all extremities. SKIN: Warm, dry, no rashes appreciated, non-jaundiced. PSYCH: Normal mood and affect. Cooperative and appropriate. NEURO: CN grossly intact. Moving all extremities well. Normal strength and sensation grossly. ED Treatment Course - LABORATORY CBC & Chemistry Diagram: 09/02/19 10:15 09/02/19 10:15 Medical Decision Making - Medical Decision Making 09/02/19 10:16 43yo F PMH floating kidney, migraines, seen at [facility] last night, diagnosed with a UTI/Pyelo discharged with Rx for Keflex, presenting with symptoms of her typical migraine headache. 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 Exam notable for AFVSS, mild suprapubic tenderness, normal MSE. DDX: UTI /Pyelo, Migraine, less likely bacteremia or infection progression given no fever and stable vitals. - CBC, CMP, BCx - Reglan, Benadryl - Ofirmev - Toradol - 1L IVF 09/02/19 12:03 - No leukocytosis - Pain somewhat improved - Headache resolved Dispo: Admit Sign out given by Dr. Edouard to Dr. Vides Discharge - Discharge Information Problems reviewed: Yes Clinical Impression/Diagnosis: Pyelonephritis Migraine Qualifiers: Migraine type: unspecified Status migrainosus presence: without status migrainosus Intractability: not intractable Qualified Code(s): G43.909 - Migraine, unspecified, not intractable, without status migrainosus Condition: Stable - Follow up/Referral - Patient Discharge Instructions - Post Discharge Activity
[2019-09-02] MEDS ORDERED: CEFTRIAXONE 1 GM in DEXTROSE 5%-WATER - 100 ML IVPB ONE (10:00)
[2019-09-02] MEDS ORDERED: METOCLOPRAMIDE HCL INJECTION 10 MG/2 ML VIAL IVPB ONE (10:00)
[2019-09-02] MEDS ORDERED: KETOROLAC TROMETHAMINE 15 MG/ML VIAL IVPUSH ONE (10:00)
[2019-09-02] MEDS ORDERED: ACETAMINOPHEN 1000 MG/100 ML VIAL (NON FORMULARY) IVPB ONE (10:00)
[2019-09-02] MEDS ORDERED: SODIUM CHLORIDE 0.9% 500 ML INFUS.BAG IV ONE (10:01)
[2019-09-02] MEDS ORDERED: METOCLOPRAMIDE HCL INJECTION 10 MG/2 ML VIAL ONE (10:19)
[2019-09-02] MEDS ORDERED: ACETAMINOPHEN INJECTION 100 ML IVPB ONE (10:19)
[2019-09-02] MEDS ORDERED: KETOROLAC TROMETHAMINE 15 MG/ML VIAL ONE (10:19)
[2019-09-02] MEDS ORDERED: cefTRIAXone SODIUM 1 GM VIAL ONE (10:20)
--- NOTE | 2019-09-02 10:20 | PDOC ---
Attending Attestation - Resident Resident Name: Rayo Ramos - ED Attending Attestation I have performed the following: I have examined & evaluated the patient, The case was reviewed & discussed with the resident, I agree w/resident's findings & plan, Exceptions are as noted - HPI HPI: 43 yo F history floating kidney, migraines presents with headache, back pain. She states she was treated at the [facility] yesterday for back pain, found to have a UTI, suspected pyelo. She states she improved with pain meds and antiemetics in the ED, but did not sampler pickup her antibiotic prescription when she left. She woke up this morning with a severe headache, nausea, vomiting, and worsening back pain, making it difficult to walk. Denies weakness, numbness. She has had similar headaches in the past. - Physicial Exam PE: GENERAL: Awake, alert, and fully oriented, appears uncomfortable HEAD: No signs of trauma EYES: PERRLA, EOMI, sclera anicteric, conjunctiva clear ENT: Auricles normal inspection, hearing grossly normal, nares patent, oropharynx clear without exudates. Dry mucosa NECK: Normal ROM, supple, no lymphadenopathy, JVD, or masses LUNGS: Breath sounds equal, clear to auscultation bilaterally. No wheezes, and no crackles HEART: Regular rate and rhythm, normal S1 and S2, no murmurs, rubs or gallops ABDOMEN: Soft, +suprapubic tenderness, normoactive bowel sounds. +R CVAT. No guarding, no rebound. No masses EXTREMITIES: Normal range of motion, no edema. No clubbing or cyanosis. No cords, erythema, or tenderness NEUROLOGICAL: Cranial nerves II through XII grossly intact. Normal speech. Motor and sensation intact. Antalgic gait. SKIN: Warm, dry, normal turgor, no rashes or lesions noted. - Medical Decision Making Pt ill-appearing, dehydrated, with +UA and CVAT with vomiting. Treated with reglan, tylenol, benadryl for the headache. IV rocephin given for the UTI. Will admit for pyelo in light of her pain and vomiting.
[2019-09-02 10:35] LABS: BASO % 0.4 % (0-2.0); EOS % 3.6 % (0-4.5); HEMATOCRIT 39.5 % (32.4-45.2); HEMOGLOBIN 13.1 GM/dl (10.7-15.3); LYMPH % 16.2 % (8-40); MCH 30.8 pg (25.7-33.7); MCHC 33.1 g/dl (32.0-36.0); MEAN CELL VOLUME 93.1 fl (80-96); MEAN PLT VOLUME 9.8 fl (7.5-11.1); MONO % 4.5 % (3.8-10.2); NEUT % 75.3 % (42.8-82.8); PLATELET COUNT 156 K/MM3 (134-434); RBC 4.24 M/mm3 (3.60-5.2); RDW 12.3 % (11.6-15.6); WHITE BLOOD COUNT 8.1 K/mm3 (4.0-10.8)
[2019-09-02 10:36] LABS: ALBUMIN 4.1 g/dl (3.4-5.0); BILIRUBIN,TOTAL 0.7 mg/dl (0.2-1); CALCIUM 9.2 mg/dl (8.5-10); CREATININE 0.7 mg/dl (0.55-1.3); POTASSIUM 3.5 mmol/L (3.5-5.1); TOT PROT 7.1 g/dl (6.4-8.2)
[2019-09-02] MEDS ORDERED: METOCLOPRAMIDE HCL INJECTION 10 MG/2 ML VIAL IVPUSH PRN (12:05)
[2019-09-02] MEDS ORDERED: LACTATED RINGERS SOLUTION 1,000 ML IV SCH (12:15)
[2019-09-02] MEDS ORDERED: SODIUM CHLORIDE 1,000 ML IV STA (12:57)
[2019-09-02 14:11] VITALS: BMI 25.4
[2019-09-02] MEDS ORDERED: SODIUM CHLORIDE 1,000 ML IV SCH (14:30)
[2019-09-02] MEDS ORDERED: ACETAMINOPHEN/CAFFEINE/BUTALBITAL 1 TAB PO ONE (14:30)
[2019-09-02] MEDS ORDERED: HEPARIN NA (PORCINE) 5,000 UNITS/ML 1ML VIAL SQ SCH (18:00)
--- NOTE | 2019-09-02 22:12 | HP ---
CHIEF COMPLAINT:vomiting, pain to right lower back and headache PCP: HISTORY OF PRESENT ILLNESS: 43 year old female with history floating kidney, migraine headaches who presents with headache and right lower back pain and vomiting.. She [facility], found to have a UTI , suspected pyelo. She states she improved with pain medications and antiemetics in the ED,and was discharged but did not hop picker her antibiotic prescription when she left. She woke up this morning with a severe headache, nausea, vomiting, and worsening right lower back pain, making it difficult to walk. ER course was notable for symptomatic UTI. (1)no leukocytosis, afebrile normal renal function, received IV Ceftriaxone 1gm. Recent Travel: no PAST MEDICAL HISTORY: migraine headaches floating kidney PAST SURGICAL HISTORY: Social History: Smoking:no Alcohol:no Drugs: no Allergies No Known Allergies Allergy (Verified 09/01/19 18:58) HOME MEDICATIONS: Home Medications Medication Instructions Recorded Cephalexin Monohydrate [Keflex -] 500 mg PO BID 10 Days #20 capsule 09/02/19 REVIEW OF SYSTEMS CONSTITUTIONAL: Absent: fever, chills, diaphoresis, generalized weakness, malaise, loss of appetite, weight change HEENT: Absent: rhinorrhea, nasal congestion, throat pain, throat swelling, difficulty swallowing, mouth swelling, ear pain, eye pain, visual changes CARDIOVASCULAR: Absent: chest pain, syncope, palpitations, irregular heart rate, lightheadedness , peripheral edema RESPIRATORY: Absent: cough, shortness of breath, dyspnea with exertion, orthopnea, wheezing, stridor, hemoptysis GASTROINTESTINAL: Absent: abdominal pain, abdominal distension, nausea, vomiting, diarrhea, constipation, melena, hematochezia GENITOURINARY: Absent: dysuria, frequency, urgency, hesitancy, hematuria, flank pain, genital pain MUSCULOSKELETAL: Absent: myalgia, arthralgia, joint swelling, right lower back pain, neck pain SKIN: Absent: rash, itching, pallor HEMATOLOGIC/IMMUNOLOGIC: Absent: easy bleeding, easy bruising, lymphadenopathy, frequent infections ENDOCRINE: Absent: unexplained weight gain, unexplained weight loss, heat intolerance, cold intolerance NEUROLOGIC: Absent: headache, focal weakness or paresthesias, dizziness, unsteady gait, seizure, mental status changes, bladder or bowel incontinence PSYCHIATRIC: Absent: anxiety, depression, suicidal or homicidal ideation, hallucinations. PHYSICAL EXAMINATION Vital Signs - 24 hr 09/02/19 09/02/19 09/02/19 09:16 12:54 13:15 Temperature 98.9 F 98.4 F 98.3 F Pulse Rate 98 H 62 Pulse Rate [ 71 Apical] Respiratory 20 16 16 Rate Blood Pressure 137/69 92/52 L Blood Pressure 91/55 L [Right Arm] O2 Sat by Pulse 99 100 Oximetry (%) 09/02/19 09/02/19 14:25 18:00 Temperature 98.3 F 98.4 F Pulse Rate 71 80 Pulse Rate [ Apical] Respiratory 16 18 Rate Blood Pressure 93/53 L 99/60 Blood Pressure [Right Arm] O2 Sat by Pulse 93 L 97 Oximetry (%) GENERAL: awake, alert, and fully oriented no acute distress HEAD: normal EYES: pupils equal, round and reactive to light, extraocular movements intact EARS, NOSE, THROAT: ears normal, nares patent NECK: normal LUNGS: breath sounds clear to auscultation bilaterally no wheezes no crackles no accessory muscle use HEART: regular rate and rhythm normal S1 and S2 ABDOMEN: soft, nontender, not distended, normoactive bowel sounds MUSCULOSKELETAL: normal range of motion UPPER EXTREMITIES: 2+ pulses warm well-perfused no cyanosis LOWER EXTREMITIES: 2+ pulses warm well-perfused no peripheral edema NEUROLOGICAL:no neuro focal deficist normal speech PSYCHIATRIC: cooperative good eye contact appropriate mood SKIN: warm dry normal turgor no rashes or lesions normal capillary refill. Laboratory Results - last 24 hr 09/02/19 09/02/19 10:15 10:15 WBC 8.1 RBC 4.24 Hgb 13.1 Hct 39.5 MCV 93.1 MCH 30.8 MCHC 33.1 RDW 12.3 Plt Count 156 MPV 9.8 Absolute Neuts (auto) 6.1 Neutrophils % 75.3 Lymphocytes % 16.2 Monocytes % 4.5 Eosinophils % 3.6 Basophils % 0.4 Sodium 137 Potassium 3.5 Chloride 108 H Carbon Dioxide 24 Anion Gap 5 L BUN 11.0 Creatinine 0.7 Est GFR (CKD-EPI)AfAm 122.99 Est GFR (CKD-EPI)NonAf 106.12 Random Glucose 92 Calcium 9.2 Total Bilirubin 0.7 AST 21 ALT 15 Alkaline Phosphatase 71 Total Protein 7.1 Albumin 4.1 ASSESSMENT/PLAN: Mrs. Rae is a 43 year old female with history floating kidney, and migraine headaches who presents with headache, nausea, vomiting and right lower back pain . She was found to have a UTI and discharged home from [facility] earlier this morning . She was placed on oral Keflex which she did not have time to hop picker from pharmacy, now her symptoms have worsened. 1. Symptomatic UTI/?Pyelonephritis Currently afebrile, WBC normal, renal function normal Repeat UA and culture pending Renal US ordered to exclude hydronephrosis Continue with IV Ceftriaxone daily Zofran for nausea Clear liquid diet Tylenol 650mg for fever Repeat CBC in am Consider CT scan of abdomen to exclude pyelonephritis DVT Prophylaxis SCD's Visit type - Emergency Visit Emergency Visit: Yes ED Registration Date: 09/02/19 Care time: The patient presented to the Emergency Department on the above date and was hospitalized for further evaluation of their emergent condition. - New Patient This patient is new to me today: Yes Date on this admission: 09/02/19 - Critical Care Critical Care patient: No
[2019-09-03] MEDS ORDERED: SODIUM CHLORIDE 500 ML IV STA (02:27)
[2019-09-03] MEDS ORDERED: IBUPROFEN 400 MG TABLET (FP) PO ONE (03:02)
[2019-09-03 08:58] LABS: BASO % 0.6 % (0-2.0); HEMATOCRIT 34.4 % (32.4-45.2); HEMOGLOBIN 11.7 GM/dl (10.7-15.3); LYMPH % 31.4 % (8-40); MCH 31.8 pg (25.7-33.7); MCHC 33.8 g/dl (32.0-36.0); MEAN CELL VOLUME 93.9 fl (80-96); MEAN PLT VOLUME 9.4 fl (7.5-11.1); MONO % 5.8 % (3.8-10.2); NEUT % 55.2 % (42.8-82.8); PLATELET COUNT 133 K/MM3 (134-434); RBC 3.67 M/mm3 (3.60-5.2); RDW 12.4 % (11.6-15.6); WHITE BLOOD COUNT 4.5 K/mm3 (4.0-10.8)
[2019-09-03 09:05] LABS: ALBUMIN 3.3 g/dl (3.4-5.0); BILIRUBIN,TOTAL 0.6 mg/dl (0.2-1); CALCIUM 8.4 mg/dl (8.5-10); CREATININE 0.5 mg/dl (0.55-1.3); MAGNESIUM 1.9 mg/dL (1.8-2.4); POTASSIUM 4.1 mmol/L (3.5-5.1); TOT PROT 5.9 g/dl (6.4-8.2)
[2019-09-03] MEDS ORDERED: CEFTRIAXONE 1,000 MG in DEXTROSE 5%-WATER - 50 ML IVPB ONE (10:00)
[2019-09-03] MEDS: CEFTRIAXONE 1 G/50 ML PREMIX 50 ML IVPB SCH (10:17)
--- NOTE | 2019-09-03 14:55 | PN ---
Progress Note, Physician History of Present Illness: Patient seen and examined at bedside. She endorses a headache. Endorses she usually takes whatever is around the house such as aleve advil tylenol. She mixes NSAIDs. She endorses hot flashes and was told she is going thru a premenopausal stage according to [employer] based on labs. She denies fever or chills. Denies chest pain or SOB. No longer has back pain. no urinary symptoms. - Current Medication List Current Medications: Active Medications Acetaminophen/Butalbital/Caffeine (Fioricet -) 1 tablet PO Q6H PRN PRN Reason: Headache/Migraine Ceftriaxone Sodium (Ceftriaxone 1 Gm-D5w Bag) 50 mls @ 100 mls/hr IVPB DAILY YEN; Protocol Last Admin: 09/03/19 10:17 Dose: 100 mls/hr Sodium Chloride (Normal Saline -) 1,000 mls @ 100 mls/hr IV ASDIR YEN Last Admin: 09/02/19 14:35 Dose: 100 mls/hr Metoclopramide HCl (Reglan Injection -) 10 mg IVPUSH Q8H PRN PRN Reason: NAUSEA AND/OR VOMITING - Objective Vital Signs: Vital Signs Temperature 97.7 F 09/03/19 14:00 Pulse Rate 81 09/03/19 14:00 Respiratory Rate 18 09/03/19 14:00 Blood Pressure 107/64 09/03/19 14:00 O2 Sat by Pulse Oximetry (%) 100 09/03/19 14:00 Constitutional: Yes: Well Nourished, No Distress, Calm Eyes: Yes: Conjunctiva Clear HENT: Yes: Atraumatic Neck: Yes: Supple Cardiovascular: Yes: Regular Rate and Rhythm Respiratory: Yes: CTA Bilaterally Gastrointestinal: Yes: Normal Bowel Sounds, Soft Genitourinary: Yes: Other (suprapubic tenderness present). No: Bladder Distention, CVA Tenderness - Left, CVA Tenderness - Right Edema: No Neurological: Yes: Alert, Oriented Psychiatric: Yes: Alert, Oriented Labs: CBC, BMP 09/03/19 08:25 09/03/19 08:25 - ....Imaging Cat Scan: Report Reviewed, Image Reviewed Ultrasound: Pending Impression/Plan Impression/Plan: 43 year old female with history floating kidney, and migraine headaches who presents with headache, nausea, vomiting and right lower back pain. 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 Did not receive ABx in ER. Just given Rx for keflex no CVA tenderness or back pain at this time. Doubt pyelonephritis given CTAP being normal no fever or chills and rapid resolution. She does have suprapubic tenderness. cystitis likely WBC normal, renal function normal UCx growing non lactose fermenting GNB. ID and sensitivities pending Renal US ordered to exclude hydronephrosis-done but pending read no hydro on CTAP Continue with IV Ceftriaxone daily for now Clear liquid diet advance to regular Stop IVF Migraine/headache patient counselled on medication overuse asking for percocet but i told patient that opioids can cause rebound headaches. States the fioricet I ordered yesterday worked Will give fioricet DVT Prophylaxis HSQ Visit type - Emergency Visit Emergency Visit: Yes ED Registration Date: 09/02/19 Care time: The patient presented to the Emergency Department on the above date and was hospitalized for further evaluation of their emergent condition. - New Patient This patient is new to me today: Yes Date on this admission: 09/03/19 - Critical Care Critical Care patient: No
[2019-09-03] MEDS: ACETAMINOPHEN/CAFFEINE/BUTALBITAL 1 TAB PO PRN ×2 (14:57→21:12)
[2019-09-03] MEDS: HEPARIN NA (PORCINE) 5,000 UNITS/ML 1ML VIAL SQ SCH (21:14)
[2019-09-04 04:25] VITALS: TEMP 98.1
[2019-09-04] MEDS: HEPARIN NA (PORCINE) 5,000 UNITS/ML 1ML VIAL SQ SCH (06:13)
[2019-09-04 06:37] VITALS: BP 107/64; PULSE 70
[2019-09-04 08:35] LABS: BASO % 0.8 % (0-2.0); EOS % 8.7 % (0-4.5); HEMATOCRIT 37.7 % (32.4-45.2); HEMOGLOBIN 12.4 GM/dl (10.7-15.3); LYMPH % 32.5 % (8-40); MCH 30.9 pg (25.7-33.7); MCHC 32.8 g/dl (32.0-36.0); MEAN CELL VOLUME 94.2 fl (80-96); MEAN PLT VOLUME 11.2 fl (7.5-11.1); MONO % 5.5 % (3.8-10.2); NEUT % 52.5 % (42.8-82.8); PLATELET COUNT 163 K/MM3 (134-434); RBC 4.01 M/mm3 (3.60-5.2); RDW 12.8 % (11.6-15.6); WHITE BLOOD COUNT 5.6 K/mm3 (4.0-10.8)
[2019-09-04 08:40] LABS: CREATININE 0.5 mg/dl (0.55-1.3); POTASSIUM 3.9 mmol/L (3.5-5.1)
--- NOTE | 2019-09-04 09:15 | DS ---
Physical Exam: SUBJECTIVE: Patient seen and examined at bedside. UCx grew pansensitive E. Coli. Patient is Afebrile and feeling well today. Headache is still there but significantly improved and bearable. No other symptoms on complete ROS. OBJECTIVE: Vital Signs Period Temp Pulse Resp BP Sys/Jacobs Pulse Ox Last 24 Hr 97.6 F-98.6 F 65-89 17-18 93-107/50-64 98-100 PHYSICAL EXAM Constitutional: Yes: Well Nourished, No Distress, Calm Eyes: Yes: Conjunctiva Clear HENT: Yes: Atraumatic Neck: Yes: Supple Cardiovascular: Yes: Regular Rate and Rhythm Respiratory: Yes: CTA Bilaterally Gastrointestinal: Yes: Normal Bowel Sounds, Soft Genitourinary: Yes: Other (no suprapubic tenderness present today-resolved). No : Bladder Distention, CVA Tenderness - Left, CVA Tenderness - Right Edema: No Neurological: Yes: Alert, Oriented Psychiatric: Yes: Alert, Oriented LABS Laboratory Results - last 24 hr 09/02/19 09/04/19 09/04/19 06:00 06:00 06:00 WBC 5.6 RBC 4.01 Hgb 12.4 Hct 37.7 MCV 94.2 MCH 30.9 MCHC 32.8 RDW 12.8 Plt Count 163 MPV 11.2 H Absolute Neuts (auto) 3.0 Neutrophils % 52.5 Lymphocytes % 32.5 Monocytes % 5.5 Eosinophils % 8.7 H Basophils % 0.8 Sodium 138 Potassium 3.9 Chloride 107 Carbon Dioxide 24 Anion Gap 7 L BUN 6.0 L Creatinine 0.5 L Est GFR (CKD-EPI)AfAm 137.39 Est GFR (CKD-EPI)NonAf 118.54 Random Glucose 82 Calcium 9.0 Urine Color Yellow Urine Appearance Clear Urine pH 6.5 Urine Protein Negative Urine Glucose (UA) Negative Urine Ketones Negative Urine Blood Negative Urine Nitrite Negative Urine Bilirubin Negative Urine Urobilinogen 0.2 Ur Leukocyte Esterase Trace H Urine RBC No Result Required. Urine WBC 2-5 HOSPITAL COURSE: Date of Admission:09/02/19 Date of Discharge: 09/04/19 43 year old female with history floating kidney and migraine headaches who presents with headache and right lower back pain and vomiting. 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 She went home and woke up with symptoms listed above and came here to [facility]. Admitted with suspected pyelonephritis but that was ruled out given negative CT, no fever, no CVA tenderness and rapid resolution of symptoms. UCx from 09/02/2019 (first visit ) grew root sensitive E. Coli. Will give dose of ceftriaxone now and give Rx for keflex 500mg po BID for 4 more days starting tomorrow to complete 7 days. Patient extensively counselled yesterday and today about the importance of establishing care for preventative management and to decrease ER visits. She will follow up with the resident clinic. Minutes to complete discharge: 38 Discharge Summary Problems reviewed: Yes Reason For Visit: MIGRAINE HEADACHE Current Active Problems Cystitis (Acute) Migraine (Acute) UTI (lower urinary tract infection) (Acute) Condition: Stable - Instructions Diet, Activity, Other Instructions: You were hospitalized for a urinary tract infection. Your urine grew E. Coli. You were treated with IV Antibiotics. You will get a prescription for Keflex for 4 more days starting tomorrow. It is important that you establish care with a primary care doctor as we discussed. the phone number is [phone] They are open M-F. It doesn't matter which doctor they schedule you under as long as it is with the residents. It is important to establish primary care for preventative management and to avoid frequent ER visits. Once you feel better start diet and exercising. If you have nausea vomiting fever chills chest pain shortness of breath or worsening of your symptoms then go to the nearest emergency room. Referrals: Casey Venegas MD [Staff Physician] - 2 Weeks (This is the resident clinic information. Please call to schedule an appointment. Tell them you want to establish care with the resident clinic. ) Disposition: HOME - Home Medications Comprehensive Discharge Medication List: Ambulatory Orders Cephalexin Monohydrate [Keflex -] 500 mg PO BID 4 Days #8 capsule 09/04/19 This patient is new to me today: No Emergency Visit: Yes ED Registration Date: 09/02/19 Care time: The patient presented to the Emergency Department on the above date and was hospitalized for further evaluation of their emergent condition. Critical Care patient: No - Discharge Referral Referred to [facility] Yes Physician Referral: Alejandro Matamoros MD (Int Med) (Given follow up with Dr. Venegas to establish care with the resident clinic)
[2019-09-04] MEDS: ACETAMINOPHEN/CAFFEINE/BUTALBITAL 1 TAB PO PRN (09:18)
[2019-09-04] MEDS: CEFTRIAXONE 1 G/50 ML PREMIX 50 ML IVPB SCH (09:18)
== END 2019-09-04 11:15 | disposition home or self-care (01) | DRG 690 ==
LOC: FER 09:15 → FM/S 12:51
PROVIDERS: ADMIT Internal Medicine; ATTEND Internal Medicine
DX: N39.0 Urinary tract infection, site not specified (principal); B96.20 Unspecified Escherichia coli [E. coli] as the cause of diseases classified elsewhere; G43.909 Migraine, unspecified, not intractable, without status migrainosus
CPT/HCPCS: 36415; 76775-TC; 80048; 80053; 81003; 81015; 83735; 85025; 87040; 87086; 99285-25; J0131; J1644; J7030

== ENCOUNTER 2021-10-18 12:38 | Emergency (ER) | payer BC ==
[2021-10-18 12:49] VITALS: BP 132/74; PULSE 78; TEMP 98.4; BMI 24.7
== END 2021-10-18 13:46 | disposition home or self-care (01) ==
LOC: FER 12:38
DX: M79.675 Pain in left toe(s) (principal)
CPT/HCPCS: 73630-TC-LT; 99283-25

== ENCOUNTER 2024-06-10 04:08 | Day surgery (SDC) | payer BC ==
[2024-06-08 16:50] VITALS: BMI 31.1
[2024-06-10] MEDS ORDERED: LIDOCAINE 1%/EPI 1:100000 (20 ML MULTI DOSE VIAL) ONE (10:22)
[2024-06-10] MEDS ORDERED: ALBUTEROL SO4 HFA INHALER IH ONE (10:28)
[2024-06-10] MEDS ORDERED: DEXAMETHASONE SOD PHOSPHATE 10 MG/1 ML VIAL ONE (10:28)
[2024-06-10] MEDS ORDERED: PROPOFOL 40 ML ONE (10:30)
[2024-06-10] MEDS ORDERED: ceFAZolin SODIUM 1 GM VIAL ONE (10:30)
[2024-06-10] MEDS ORDERED: SUGAMMADEX SODIUM 200 MG/2 ML VIAL ONE ×2 (10:30→12:51)
[2024-06-10] MEDS ORDERED: LIDOCAINE HCL/PF 2% SDV 5ML VIAL ONE (10:30)
[2024-06-10] MEDS ORDERED: ONDANSETRON 4 MG/2 ML VIAL ONE (10:30)
[2024-06-10] MEDS ORDERED: ROCURONIUM BROMIDE 50 MG/5 ML SYRINGE ONE (10:30)
[2024-06-10] MEDS ORDERED: GLYCOPYRROLATE 0.2 MG/1 ML VIAL ONE (10:30)
[2024-06-10] MEDS ORDERED: MIDAZOLAM HCL 2 MG/2 ML SINGLE DOSE VIAL ONE (10:30)
[2024-06-10] MEDS: ceFAZolin SODIUM 1 GM VIAL IVPB ONE (11:10)
[2024-06-10] MEDS: LIDOCAINE 1%/EPI 1:100000 (20 ML MULTI DOSE VIAL) IJ ONE (11:56)
[2024-06-10] MEDS: OXYMETAZOLINE 0.05% NASAL SOLUTION 15 ML BOTTLE NS ONE (11:57)
[2024-06-10] MEDS ORDERED: ONDANSETRON 4 MG/2 ML VIAL IVPUSH PRN (13:56)
[2024-06-10] MEDS ORDERED: LACTATED RINGERS SOLUTION 1,000 ML IV SCH (14:00)
[2024-06-10] MEDS ORDERED: ACETAMINOPHEN INJECTION 100 ML ONE (14:13)
[2024-06-10] MEDS: ACETAMINOPHEN 1000 MG/100 ML BAG IVPB ONE (14:18)
[2024-06-10 15:27] VITALS: TEMP 97
[2024-06-10] MEDS: oxyCODONE HCL 5 MG TABLET PO ONE (15:42)
[2024-06-10] MEDS ORDERED: oxyCODONE HCL 10 MG SUSTAINED ACTING TABLET ONE (15:43)
[2024-06-10] MEDS ORDERED: KETOROLAC TROMETHAMINE 30 MG/1 ML VIAL ONE (16:10)
[2024-06-10] MEDS: KETOROLAC TROMETHAMINE 30 MG/1 ML VIAL IVPUSH ONE (16:12)
[2024-06-10 17:16] VITALS: BP 130/80; PULSE 69; RESP 20
== END 2024-06-10 18:11 | disposition home or self-care (01) ==
LOC: JASU-SURG 04:08
PROVIDERS: ATTEND Otolaryngology
PROC: 09DU0ZZ Extraction of Right Ethmoid Sinus, Open Approach (ICD-10-PCS; 2024-06-10)
PROC: 09TL7ZZ Resection of Nasal Turbinate, Via Natural or Artificial Opening (ICD-10-PCS; 2024-06-10)
PROC: 09DV0ZZ Extraction of Left Ethmoid Sinus, Open Approach (ICD-10-PCS; principal; 2024-06-10 10:00)
DX: J33.9 Nasal polyp, unspecified (principal); J32.9 Chronic sinusitis, unspecified; R09.81 Nasal congestion
CPT/HCPCS: 88304-TC; 88311-TC; 94760; J0131; J1100

== ENCOUNTER 2024-06-24 08:31 | Day surgery (SDC) | payer BC ==
[2024-06-24 08:53] VITALS: BMI 31.1
[2024-06-24] MEDS ORDERED: TRANEXAMIC ACID 1000 MG/10 ML VIAL ONE (09:09)
[2024-06-24] MEDS: SODIUM CHLORIDE 0.9% 500 ML INFUS.BAG IV ONE (09:35)
[2024-06-24] MEDS: TRANEXAMIC ACID 1000 MG/10 ML VIAL IVPUSH ONE (09:42)
[2024-06-24 09:57] LABS: HEMATOCRIT 28.8 % (32.4-45.2); HEMOGLOBIN 9.1 GM/dL (10.7-15.3); MCH 29.9 pg (25.7-33.7); MCHC 31.8 g/dl (32.0-36.0); MEAN CELL VOLUME 94.1 fl (80-96); MEAN PLT VOLUME 9.1 fl (7.5-11.1); PLATELET COUNT 431 10^3/uL (134-434); RBC 3.06 M/mm3 (3.60-5.2); RDW 14.2 % (11.6-15.6); WHITE BLOOD COUNT 22.8 K/mm3 (4.0-10.0)
[2024-06-24 10:23] LABS: POTASSIUM 4.6 mmol/L (3.5-5.1)
[2024-06-24 10:24] LABS: INR 1.07 (0.83-1.09); PROTHROMBIN TIME (PATIENT) 12.3 SEC (9.7-13.0)
[2024-06-24 10:25] LABS: ALBUMIN 3.4 g/dl (3.4-5.0); CALCIUM 9.3 mg/dL (8.5-10.1)
[2024-06-24 10:26] LABS: BLOOD UREA NITROGEN 12.2 mg/dL (7-18); MAGNESIUM 2.3 mg/dL (1.8-2.4)
[2024-06-24 10:27] LABS: ACTIVATED PTT 25.1 SECONDS (25.2-36.5)
[2024-06-24 10:29] LABS: CREATININE 0.7 mg/dL (0.55-1.3)
[2024-06-24 10:30] LABS: BILIRUBIN,TOTAL 0.3 mg/dL (0.2-1); TOT PROT 7.6 g/dl (6.4-8.2)
[2024-06-24 11:00] LABS: ANISOCYTOSIS 1+; MACROCYTOSIS 1+; OVALOCYTE 1+; TEAR DROP CELLS 1+
[2024-06-24] MEDS ORDERED: LIDOCAINE 1%/EPI 1:100000 (20 ML MULTI DOSE VIAL) ONE (13:32)
[2024-06-24] MEDS ORDERED: COCAINE HCL 4% TOPICAL SOLUTION 4 ML BOTTLE TP ONE (13:34)
[2024-06-24] MEDS ORDERED: MIDAZOLAM HCL 2 MG/2 ML SINGLE DOSE VIAL ONE (14:18)
[2024-06-24] MEDS ORDERED: PROPOFOL 20 ML ONE ×2 (14:18→14:31)
[2024-06-24] MEDS ORDERED: LIDOCAINE HCL/PF 2% SDV 5ML VIAL ONE (14:19)
[2024-06-24] MEDS ORDERED: ALBUTEROL SO4 HFA INHALER IH ONE (14:26)
[2024-06-24] MEDS ORDERED: ROCURONIUM BROMIDE 50 MG/5 ML SYRINGE ONE (14:29)
[2024-06-24] MEDS: ceFAZolin SODIUM 1 GM VIAL IVPB ONE (14:38)
[2024-06-24] MEDS ORDERED: ceFAZolin SODIUM 1 GM VIAL ONE ×2 (14:38)
[2024-06-24] MEDS: LIDOCAINE 1%/EPI 1:100000 (50 ML MULTI DOSE VIAL) INF ONE (14:52)
[2024-06-24] MEDS: OXYMETAZOLINE 0.05% NASAL SOLUTION 15 ML BOTTLE NS ONE ×2 (14:53→16:09)
[2024-06-24] MEDS ORDERED: ONDANSETRON 4 MG/2 ML VIAL IVPUSH PRN (15:53)
[2024-06-24] MEDS: BACITRACIN ZINC 15 GM TUBE TOPICAL OINTMENT TP ONE (15:55)
[2024-06-24] MEDS: LACTATED RINGERS SOLUTION 1,000 ML IV SCH (16:08)
[2024-06-24] MEDS ORDERED: ACETAMINOPHEN INJECTION 100 ML ONE (16:10)
[2024-06-24] MEDS: ACETAMINOPHEN 1000 MG/100 ML BAG IVPB ONE (16:11)
[2024-06-24 19:18] VITALS: RESP 20
[2024-06-24 20:18] VITALS: BP 108/68; PULSE 70; TEMP 97.2
== END 2024-06-24 20:28 | disposition home or self-care (01) ==
LOC: JER 08:31 → JASUSAT 10:42
PROVIDERS: ATTEND Otolaryngology
PROC: 093K8ZZ Control Bleeding in Nasal Mucosa and Soft Tissue, Via Natural or Artificial Opening Endoscopic (ICD-10-PCS; principal; 2024-06-24 14:00)
DX: J95.830 Postprocedural hemorrhage of a respiratory system organ or structure following a respiratory system procedure (principal); R04.0 Epistaxis; Z98.890 Other specified postprocedural states; Y83.8 Other surgical procedures as the cause of abnormal reaction of the patient, or of later complication, without mention of misadventure at the time of the procedure; Y92.9 Unspecified place or not applicable
CPT/HCPCS: 36415; 80053; 83735; 85025; 85610; 85730; 86850; 86900; 86901; 94760; 99291; J0131

== ENCOUNTER 2024-08-16 10:47 | Emergency (ER) | payer BC ==
[2024-08-16 10:59] VITALS: BMI 32.5
[2024-08-16] MEDS ORDERED: ALBUTEROL SO4 2.5/IPRATROPIUM 0.5 INH SOL 3 ML VIAL.NEB. NEB ONE (11:17)
[2024-08-16] MEDS: ALBUTEROL SO4 2.5/IPRATROPIUM 0.5 INH SOL 3 ML VIAL.NEB. NEB ONE (11:20)
[2024-08-16] MEDS ORDERED: methylPREDNISolone NA SUCC 125 MG/2 ML VIAL ONE (11:21)
[2024-08-16] MEDS ORDERED: METOCLOPRAMIDE HCL INJECTION 10 MG/2 ML VIAL ONE (11:33)
[2024-08-16] MEDS: methylPREDNISolone NA SUCC 125 MG/2 ML VIAL IVPUSH ONE (11:35)
[2024-08-16] MEDS: METOCLOPRAMIDE HCL INJECTION 10 MG/2 ML VIAL IVPB ONE (11:45)
[2024-08-16] MEDS: SODIUM CHLORIDE 0.9% 1000 ML INFUS.BAG IV ONE (12:10)
[2024-08-16] MEDS ORDERED: ACETAMINOPHEN INJECTION 100 ML ONE (12:44)
[2024-08-16] MEDS: ACETAMINOPHEN 1000 MG/100 ML BAG IVPB ONE (12:49)
[2024-08-16 15:05] LABS: HIV INTERPRETATION NEGATIVE (NEGATIVE)
[2024-08-16 15:22] VITALS: BP 112/65; PULSE 83; RESP 18; TEMP 99.9
== END 2024-08-16 13:45 | disposition home or self-care (01) ==
LOC: FER 10:47
PROC: 3E033NZ Introduction of Analgesics, Hypnotics, Sedatives into Peripheral Vein, Percutaneous Approach (ICD-10-PCS; principal; 2024-08-16)
PROC: 3E033GC Introduction of Other Therapeutic Substance into Peripheral Vein, Percutaneous Approach (ICD-10-PCS; 2024-08-16)
PROC: 3E033GC Introduction of Other Therapeutic Substance into Peripheral Vein, Percutaneous Approach (ICD-10-PCS; 2024-08-16)
PROC: 3E0F7GC Introduction of Other Therapeutic Substance into Respiratory Tract, Via Natural or Artificial Opening (ICD-10-PCS; 2024-08-16)
DX: J10.1 Influenza due to other identified influenza virus with other respiratory manifestations (principal); J06.9 Acute upper respiratory infection, unspecified; R05.9 Cough, unspecified; R51.9 Headache, unspecified; Z20.822 Contact with and (suspected) exposure to COVID-19
CPT/HCPCS: 0241U-QW; 36415; 71046-TC-FY; 86803; 87389; 99284-25; J0131